=== PATIENT | male | born 1975 ===

== ENCOUNTER 2023-08-29 07:08 | Day surgery (SDC) | payer OTHER ==
[2023-08-29] MEDS ORDERED: LIDOCAINE HCL 2% JELLY 6 ML SYRINGE MM ONE (12:42)
[2023-08-29] MEDS ORDERED: DIPHENHYDRAMINE HCL 50 MG/ML VIAL 1ML IV ONE ×2 (13:00)
[2023-08-29] MEDS ORDERED: MIDAZOLAM HCL 2 MG/2 ML VIAL IV ONE (13:00)
[2023-08-29] MEDS ORDERED: fentaNYL CITRATE 50 MCG/ML AMPUL IV PUSH ONE (13:00)
== END 2023-08-29 14:30 | disposition home or self-care (01) ==
LOC: AMB-ENDOS 07:08
PROVIDERS: ATTEND Colon & Rectal Surgery
DX: K63.5 Polyp of colon (principal); Z20.822 Contact with and (suspected) exposure to COVID-19